=== PATIENT | male | born 1955 | race Caucasian/White ===

== ENCOUNTER → 2018-08-20 | Outpatient (CLI) | payer MEDICARE | LOC: M RAD 14:09 | DX: F17.210 Nicotine dependence, cigarettes, uncomplicated (principal); Z72.0 Tobacco use (principal) | CPT/HCPCS: G0297 ==

== ENCOUNTER → 2019-02-09 | Outpatient (CLI) | payer MEDICARE ==
[~2019-02-09] MED LIST: ALDARA CREAM TOP; ANEXIA PO; ASPI325T OR; CELE100C OR; COMBVENT INH; LOVAZA PO; NEXI1CAP3 OR; PATENOL OU; SERO1TAB OR; SIMCOR PO; VALI5TAB OR; VICODIN PO; ZOLO50TA OR
--- NOTE | 2019-02-09 13:56 | REP ---
CT CHEST WITHOUT CONTRAST: HISTORY: Abnormal lung field findings. Comparison study August 20, 2018 and August 30, 2015. CT FINDINGS: The previously noted non-solid nodule in the superior segment of the right lower lobe is again seen. This measures 10 mm in greatest diameter. It appears slightly more prominent than on the August 20, 2018 study. No new pulmonary nodule is appreciated. There are emphysematous changes in the upper lobes again noted. Vascular calcification is noted. Scattered normal-sized mediastinal nodes are seen. No definite adenopathy is seen. The aorta is quite tortuous. There are scattered linear fibrotic changes again noted. IMPRESSION: Ground-glass opacity superior segment right lower lobe appears a little more prominent. 10 mm size. Evidence of COPD. Electronically Signed by Kenrick Hook MD 02/09/2019 03:14 P
== END ==
LOC: M RAD 12:22
PROVIDERS: ATTEND Internal Medicine Pulmonary Disease
DX: R91.8 Other nonspecific abnormal finding of lung field (principal)

== ENCOUNTER → 2020-08-30 | Outpatient (CLI) | payer MEDICARE, MEDICAID ==
--- NOTE | 2020-08-30 15:00 | REP ---
INDICATION: COUGH, COPD. COMPARISON: Comparison CT studies of the chest are dated February 09, 2019, August 20, 2018, and August 30, 2015.. TECHNIQUE: Helical scanning. Contiguous 3 mm lung window only axial images are provided. FINDINGS: Emphysematous changes are again noted. There is a spiculated non solid pulmonary nodule again noted in the right lower lobe in its superior segment. This is gradually enlarging. It measures 11.3 mm today, 10 mm on February 09, 2019, and 9 mm in greatest diameter in 2017. This must be considered suspicious for low grade malignancy. There are some interstitial fibrotic changes in the lingula at the left lung base. Mild linear fibrotic changes are noted in the right middle lobe unchanged. No new pulmonary nodule is seen. No lung mass or new infiltrate is appreciated. IMPRESSION: Gradually enlarging spiculated less than solid superior segment right lower lobe nodule currently 11 mm in greatest diameter. Consideration could be given to PET-CT and/or histologic sampling. If sampling is not pursued, six-month follow-up chest CT study is recommended. Lung RADS category 4 X. <Electronically signed by Tim Hook > 08/30/20 [id number]
== END ==
LOC: M RAD 13:22
PROVIDERS: ATTEND Family Medicine
DX: F17.218 Nicotine dependence, cigarettes, with other nicotine-induced disorders (principal); J44.9 Chronic obstructive pulmonary disease, unspecified; R05 Cough

== ENCOUNTER → 2021-01-23 | Outpatient (CLI) | payer MEDICARE, MEDICAID ==
--- NOTE | 2021-01-23 19:52 | REP ---
INDICATION: DIAGNOSING LUNG NODULE R91.1. COMPARISON: Low-dose lung screening chest CT dated 08/30/2020. TECHNIQUE: Whole-body PET scanning is performed from the skull base to the upper thighs with 14.67 mCi of F 18 FDG. FINDINGS: A slowly enlarging spiculated non solid lung nodule was identified on the comparison CT in the superior segment of the right lower lobe. Neck and supraclavicular areas: There are no hypermetabolic foci. There is artifactual uptake in the vocal cords. Chest: There are no hypermetabolic foci. The standard uptake value in the right lung nodule is 1.46. Abdomen, pelvis and upper thighs: There are no hypermetabolic foci. Specifically there are no adrenal or hepatic foci. IMPRESSION: The known right lung nodule it demonstrates non hypermetabolic uptake. There are no hypermetabolic foci otherwise. <Electronically signed by John Murrieta > 01/23/21 194
== END ==
LOC: M PLARAD 12:11
PROVIDERS: ATTEND Family Medicine
DX: R91.1 Solitary pulmonary nodule (principal)
CPT/HCPCS: 78815; A9552

== ENCOUNTER → 2023-05-16 | Outpatient (CLI) | payer MEDICARE, MEDICAID ==
[2023-05-16 15:51] LABS: BASO % 0.6 % (0.0-1.0); EOS # 0.1 10^3/uL (0.0-0.5); EOS % 1.3 % (0.0-3.0); HEMOGLOBIN 14.5 g/dl (13.5-17.5); LYMPH # 1.2 10^3/uL (1.5-5.0); LYMPH % 19.3 % (24.0-44.0); MEAN CORPUSCULAR HEMOGLOBIN 27.3 pg (27.0-33.0); MEAN CORPUSCULAR HGB CONC 31.5 g/dl (32.0-36.5); MEAN CORPUSCULAR VOLUME 86.5 fl (80.0-96.0); MONO # 0.7 10^3/uL (0.0-0.8); MONO % 10.2 % (2.0-8.0); NEUTROPHILS # 4.3 10^3/uL (1.5-8.5); PLATELET COUNT, AUTOMATED 188 10^3/uL (150-450); RED BLOOD COUNT 5.32 10^6/uL (4.30-6.10); WHITE BLOOD COUNT 6.4 10^3/uL (4.0-10.0)
[2023-05-16 16:10] LABS: THYROID STIMULATING HORMONE 3.682 uIU/ML (0.55-4.78)
[2023-05-16 16:13] LABS: ALKALINE PHOSPHATASE 66 U/L (46-116); ALT/SGPT 14 U/L (7.0-40); AST/SGOT 11 U/L (<34); BILIRUBIN,TOTAL 0.6 MG/DL (0.3-1.2); BLOOD UREA NITROGEN 23 MG/DL (9-23); CALCIUM LEVEL 9.7 MG/DL (8.3-10.6); CARBON DIOXIDE LEVEL 29 MMOL/L (20-31); CHLORIDE LEVEL 103 MMOL/L (98-107); CHOLESTEROL LEVEL 177 MG/DL (<200); CHOLESTEROL RISK RATIO 7.76 (<5); CREATININE FOR GFR 1.23 MG/DL (0.70-1.30); GLOMERULAR FILTRATION RATE > 60.0 (>49); GLUCOSE, FASTING 58 MG/DL (74-106); GLUCOSE,RANDOM 58 MG/DL (LESS THAN 200); HDL CHOLESTEROL 22.8 MG/DL (>40); LDL CHOLESTEROL 118.4 MG/DL (<100); NON-HDL-C 154.2 MG/DL; POTASSIUM SERUM 3.6 MMOL/L (3.5-5.1); SODIUM LEVEL 140 MMOL/L (136-145); TOTAL PROTEIN 7.4 G/DL (5.7-8.2); TRIGLYCERIDES LEVEL 179 MG/DL (<150)
== END ==
LOC: M RAD 14:40
PROVIDERS: ATTEND Family Medicine
DX: R05.9 Cough, unspecified (principal); Z72.0 Tobacco use